=== PATIENT | male | born 1960 | race Caucasian/White ===

== ENCOUNTER 2017-11-21 15:49 | Inpatient (IN) | payer OTHER ==
[2017-11-21] MEDS: morphine 4 MG/ML VIAL IV (20:25)
[2017-11-21] MEDS: SOD CHLORIDE 0.9% 1,000 ML IV (20:25)
[2017-11-21] MEDS: ACETAMINOPHEN 325 MG TAB PO (20:26)
[2017-11-21] MEDS: ONDANSETRON 4 MG INJ IV (20:26)
[2017-11-21 20:44] LABS: ADD MAN DIFF? NO
[2017-11-21 20:49] LABS: ABNORMAL IP MESSAGE 1; BASOPHILS % 0.2 % (0.0-2.0); EOSINOPHILS % 0.1 % (0.0-7.0); HEMATOCRIT 35.9 % (42.0-52.0); HEMOGLOBIN 12.3 g/dl (14.0-18.0); LYMPHOCYTES # 0.9 10^3/ul (0.8-2.9); LYMPHOCYTES % 5.9 % (15.0-51.0); MEAN CORPUSCULAR HGB CONC 34.3 g/dl (32.0-37.0); MEAN CORPUSCULAR VOLUME 87.6 fl (82.0-101.0); MEAN PLATELET VOLUME 11.7 fl (7.4-10.4); MONOCYTE # 0.9 10^3/ul (0.3-0.9); MONOCYTES % 5.6 % (0.0-11.0); NEUTROPHIL # 13.9 10^3/ul (1.6-7.5); NEUTROPHILS % 87.6 % (39.0-77.0); PLATELET COUNT 536 10^3/UL (140-415); POSITIVE DIFF @See below; RED CELL DISTRIBUTION WIDTH 12.8 % (11.5-14.5)
[2017-11-21 20:49] LABS: WHITE BLOOD COUNT 15.8 10^3/ul (4.8-10.8)
[2017-11-21 20:58] LABS: ADD UMIC YES; UR ASCORBIC ACID NEGATIVE (NEGATIVE); UR BACTERIA MANY /HPF (NONE SEEN); UR BILIRUBIN (Dip) NEGATIVE (NEGATIVE); UR BLOOD (Dip) 2+ mg/dL (NEGATIVE); UR CLARITY CLOUDY (CLEAR); UR COLOR YELLOW (YELLOW); UR GLUCOSE (Dip) 1+ mg/dL (NEGATIVE); UR KETONES (Dip) NEGATIVE (NEGATIVE); UR LEUKOCYTE ESTERASE (Dip) 3+ Leu/ul (NEGATIVE); UR NITRITE (Dip) NEGATIVE (NEGATIVE); UR RBC 2 /HPF (0-5); UR SPECIFIC GRAVITY (Dip) 1.009 (1.003-1.030); UR TOTAL PROTEIN (Dip) 2+ mg/dl (NEGATIVE); UR UROBILINOGEN (Dip) NEGATIVE (NEGATIVE); UR WBC > 182 /HPF (0-5)
[2017-11-21 21:07] LABS: ALANINE AMINOTRANSFERASE 59 IU/L (13-69); ALBUMIN 3.2 g/dl (3.3-4.9); ALBUMIN/GLOBULIN RATIO 0.84; ALKALINE PHOSPHATASE 153 IU/L (42-121); ANION GAP 18 (8-16); ASPARTATE AMINO TRANSFERASE 39 IU/L (15-46); BILIRUBIN,INDIRECT 0.5 mg/dl (0-1.1); BILIRUBIN,TOTAL 0.5 mg/dl (0.2-1.3); BLOOD UREA NITROGEN 81 mg/dl (7-20); CALCIUM 7.8 mg/dl (8.4-10.2); CARBON DIOXIDE 21 mmol/L (21-31); CHLORIDE 87 mmol/L (97-110); CREATININE 4.54 mg/dl (0.61-1.24); GLUCOSE 348 mg/dl (70-220); POTASSIUM 5.1 mmol/L (3.5-5.1); SODIUM 121 mmol/L (135-144)
[2017-11-21 21:34] LABS: PROTIME 14.4 Sec (11.9-14.9); PT RATIO 1.1
[2017-11-21 21:35] LABS: PARTIAL THROMBOPLASTIN TIME 38.4 Sec (25.0-35.0)
[2017-11-22 01:13] LABS: LACTIC ACID 1.2 mmol/L (0.5-2.0)
[2017-11-22 01:25] LABS: TROPONIN-I < 0.012 ng/ml (0.00-0.12)
[2017-11-22] MEDS: SOD CHLORIDE 0.9% 1,000 ML IV ×5 (02:15→23:32)
[2017-11-22] MEDS: CEFTRIAXONE 1 GM/50 ML (PMX) 50 ML IVPB (02:17)
[2017-11-22] MEDS ORDERED: ACETAMINOPHEN 325 MG TAB PO (02:30)
[2017-11-22 02:34] LABS: LACTIC ACID 1.3 mmol/L (0.5-2.0)
[2017-11-22] MEDS: INSULIN GLARGINE [LANtus] 3 ML PEN SC ×2 (04:00→07:54)
[2017-11-22] MEDS ORDERED: GLUCAGON 1 MG INJ IM (04:00)
[2017-11-22] MEDS ORDERED: NACL 0.9% 3 ML SYG IV (04:00)
[2017-11-22] MEDS ORDERED: GLUCOSE GEL 15 GRAM TUBE PO ×2 (04:00)
[2017-11-22] MEDS ORDERED: DEXTROSE 50% 50 ML SYRINGE IV ×2 (04:00)
[2017-11-22] MEDS ORDERED: GLUCOSE GEL 15 GRAM TUBE BUCCAL (04:00)
[2017-11-22] MEDS ORDERED: ALBUTEROL/IPRATROPIUM (NEB) 3 ML AMP HHN (04:00)
[2017-11-22] MEDS: metroNIDAZOLE 500 MG/NS (PMX) 100 ML IVPB ×3 (04:09→20:11)
[2017-11-22 05:58] LABS: ADD MAN DIFF? NO
[2017-11-22 06:00] LABS: WHITE BLOOD COUNT 13.2 10^3/ul (4.8-10.8)
[2017-11-22 06:00] LABS: ABNORMAL IP MESSAGE 1; BASOPHIL # 0.1 10^3/ul (0.0-0.1); BASOPHILS % 0.4 % (0.0-2.0); EOSINOPHILS % 0.2 % (0.0-7.0); HEMATOCRIT 32.6 % (42.0-52.0); LYMPHOCYTES # 0.4 10^3/ul (0.8-2.9); LYMPHOCYTES % 3.3 % (15.0-51.0); MEAN CORPUSCULAR HEMOGLOBIN 30.5 pg (29.0-33.0); MEAN CORPUSCULAR HGB CONC 33.7 g/dl (32.0-37.0); MEAN CORPUSCULAR VOLUME 90.3 fl (82.0-101.0); MEAN PLATELET VOLUME 11.5 fl (7.4-10.4); MONOCYTE # 0.8 10^3/ul (0.3-0.9); MONOCYTES % 6.1 % (0.0-11.0); NEUTROPHIL # 11.8 10^3/ul (1.6-7.5); NEUTROPHILS % 89.2 % (39.0-77.0); PLATELET COUNT 417 10^3/UL (140-415); POSITIVE DIFF @See below; RED BLOOD COUNT 3.61 10^6/ul (4.70-6.10); RED CELL DISTRIBUTION WIDTH 12.6 % (11.5-14.5)
[2017-11-22 07:05] LABS: PROSTATE SPECIFIC ANTIGEN 3.1 ng/ml (0.0-4.0)
[2017-11-22 07:09] LABS: HEMOGLOBIN A1C 8.4 % (0-5.9)
[2017-11-22 07:10] LABS: LACTIC ACID 1.4 mmol/L (0.5-2.0)
[2017-11-22 07:13] LABS: ALANINE AMINOTRANSFERASE 48 IU/L (13-69); ALBUMIN 2.4 g/dl (3.3-4.9); ALBUMIN/GLOBULIN RATIO 0.68; ALKALINE PHOSPHATASE 100 IU/L (42-121); ANION GAP 15 (8-16); ASPARTATE AMINO TRANSFERASE 33 IU/L (15-46); BILIRUBIN,INDIRECT 0.1 mg/dl (0-1.1); BILIRUBIN,TOTAL 0.1 mg/dl (0.2-1.3); BLOOD UREA NITROGEN 84 mg/dl (7-20); CALCIUM 6.9 mg/dl (8.4-10.2); CARBON DIOXIDE 19 mmol/L (21-31); CHLORIDE 100 mmol/L (97-110); CREATININE 3.76 mg/dl (0.61-1.24); GLUCOSE 175 mg/dl (70-220); HDL CHOLESTEROL 11 mg/dl (28-71); MAGNESIUM 2.3 mg/dl (1.7-2.5); POTASSIUM 4.9 mmol/L (3.5-5.1); SODIUM 129 mmol/L (135-144); TOTAL PROTEIN 5.9 g/dl (6.1-8.1); TRIGLYCERIDES 105 mg/dl (0-149)
[2017-11-22 07:14] LABS: CHOLESTEROL < 50 mg/dl (100-200)
[2017-11-22] MEDS: ONDANSETRON 4 MG INJ IV (07:22)
[2017-11-22] MEDS: morphine 2 MG INJ IV (07:22)
[2017-11-22] MEDS: INSULIN ASPART [NOVOLOG] 3 ML PEN SC ×7 (07:56→20:12)
[2017-11-22] MEDS: CIPROFLOXACIN 400MG/D5W 200 ML IVPB (08:46)
[2017-11-22] MEDS ORDERED: HEPARIN 5,000 UNIT/0.5 ML VIAL SC (09:00)
[2017-11-22] MEDS ORDERED: CEFTRIAXONE 1 GM/50 ML (PMX) 50 ML IVPB (11:00)
[2017-11-22 13:34] LABS: CREATINE KINASE 119 IU/L (23-200)
[2017-11-22] MEDS: ACETAMINOPHEN 325 MG TAB PO (15:11)
[2017-11-22 17:06] LABS: SODIUM,URINE RANDOM 35 mmol/L (30-90)
[2017-11-22 17:08] LABS: CREATININE,URINE RANDOM 24.34 mg/dl (20-370)
[2017-11-22] MEDS: ALPRAZOLAM 0.5 MG TAB PO (22:31)
[2017-11-23] MEDS: ACCU-CHEK XX (01:41)
[2017-11-23] MEDS: SOD CHLORIDE 0.9% 1,000 ML IV ×2 (02:12→19:27)
[2017-11-23] MEDS: metroNIDAZOLE 500 MG/NS (PMX) 100 ML IVPB (03:46)
[2017-11-23 05:55] LABS: ADD MAN DIFF? NO
[2017-11-23 05:57] LABS: BASOPHILS % 0.2 % (0.0-2.0); EOSINOPHILS # 0.1 10^3/ul (0.0-0.5); EOSINOPHILS % 0.5 % (0.0-7.0); HEMATOCRIT 31.2 % (42.0-52.0); HEMOGLOBIN 10.5 g/dl (14.0-18.0); LYMPHOCYTES # 0.8 10^3/ul (0.8-2.9); MEAN CORPUSCULAR HEMOGLOBIN 30.2 pg (29.0-33.0); MEAN CORPUSCULAR HGB CONC 33.7 g/dl (32.0-37.0); MEAN CORPUSCULAR VOLUME 89.7 fl (82.0-101.0); MEAN PLATELET VOLUME 11.4 fl (7.4-10.4); MONOCYTE # 1.1 10^3/ul (0.3-0.9); MONOCYTES % 7.7 % (0.0-11.0); NEUTROPHIL # 11.9 10^3/ul (1.6-7.5); NEUTROPHILS % 84.5 % (39.0-77.0); PLATELET COUNT 445 10^3/UL (140-415); POSITIVE DIFF @See below; RED BLOOD COUNT 3.48 10^6/ul (4.70-6.10); RED CELL DISTRIBUTION WIDTH 12.9 % (11.5-14.5)
[2017-11-23 05:57] LABS: WHITE BLOOD COUNT 14.1 10^3/ul (4.8-10.8)
[2017-11-23] MEDS ORDERED: VANCOMYCIN IV PER PHARMACY XX (06:30)
[2017-11-23] MEDS: PIPER-TAZO 2.25 GM (PMX) 50 ML IVPB (06:30)
[2017-11-23 07:10] LABS: ANION GAP 15 (8-16); BLOOD UREA NITROGEN 64 mg/dl (7-20); CALCIUM 7.3 mg/dl (8.4-10.2); CARBON DIOXIDE 19 mmol/L (21-31); CHLORIDE 106 mmol/L (97-110); CREATININE 2.72 mg/dl (0.61-1.24); GLUCOSE 104 mg/dl (70-220); MAGNESIUM 2.3 mg/dl (1.7-2.5); POTASSIUM 4.7 mmol/L (3.5-5.1); SODIUM 135 mmol/L (135-144)
[2017-11-23] MEDS: VANCOMYCIN 1.75 GM in D5W 500 ML IVPB ×2 (08:00→11:17)
[2017-11-23] MEDS: INSULIN ASPART [NOVOLOG] 3 ML PEN SC ×7 (08:00→21:00)
[2017-11-23] MEDS: INSULIN GLARGINE [LANtus] 3 ML PEN SC (08:17)
[2017-11-23 09:32] LABS: AADO2 Arterial 29.9 mmHg (7.0-24.0); Allen Test ACCEPTAB; Arterial Base Excess -6.4 mmol/L (-3.0-3); Arterial Blood Gas Oxygen Sat 96.5 mmHG (95.0-98.0); Arterial COHb 0.3 % (0.0-3.0); Arterial HCO3 16.3 mmol/L (22.0-26.0); Arterial MetHb 0.2 % (0.0-1.5); Arterial Total Hemglobin 13.9 g/dl (12.0-18.0); Arterial pCO2 25.6 mmhg (35-45); MODE ROOM AIR; Site Right Radial
[2017-11-23] MEDS ORDERED: INFLUENZA VIRUS VACCINE 0.5 ML SYG IM* (10:00)
[2017-11-23] MEDS: morphine 2 MG INJ IV (11:22)
[2017-11-23] MEDS ORDERED: PIPER-TAZO 3.375 GM IV (PMX) 100 ML IVPB (14:00)
[2017-11-23] MEDS: PIPER-TAZO 3.375 GM IV (PMX) 100 ML IVPB ×2 (16:08→22:09)
[2017-11-23] MEDS: HYDROCODONE/APAP (5/325) TAB PO (20:13)
[2017-11-24] MEDS: CHLORPROMAZINE 10 MG TAB PO (01:57)
[2017-11-24] MEDS: ACCU-CHEK XX (02:00)
[2017-11-24] MEDS: PIPER-TAZO 3.375 GM IV (PMX) 100 ML IVPB ×3 (05:33→21:34)
[2017-11-24] MEDS: SOD CHLORIDE 0.9% 1,000 ML IV ×2 (06:36→17:34)
[2017-11-24 08:00] LABS: ADD MAN DIFF? NO
[2017-11-24] MEDS: INSULIN ASPART [NOVOLOG] 3 ML PEN SC ×7 (08:00→21:00)
[2017-11-24 08:10] LABS: BASOPHIL # 0.1 10^3/ul (0.0-0.1); BASOPHILS % 0.4 % (0.0-2.0); EOSINOPHILS # 0.1 10^3/ul (0.0-0.5); EOSINOPHILS % 0.5 % (0.0-7.0); HEMATOCRIT 33.4 % (42.0-52.0); LYMPHOCYTES # 0.9 10^3/ul (0.8-2.9); LYMPHOCYTES % 5.2 % (15.0-51.0); MEAN CORPUSCULAR HEMOGLOBIN 30.2 pg (29.0-33.0); MEAN CORPUSCULAR HGB CONC 32.9 g/dl (32.0-37.0); MEAN CORPUSCULAR VOLUME 91.8 fl (82.0-101.0); MEAN PLATELET VOLUME 11.2 fl (7.4-10.4); MONOCYTES % 5.5 % (0.0-11.0); NEUTROPHIL # 15.6 10^3/ul (1.6-7.5); PLATELET COUNT 528 10^3/UL (140-415); RED BLOOD COUNT 3.64 10^6/ul (4.70-6.10); RED CELL DISTRIBUTION WIDTH 12.9 % (11.5-14.5)
[2017-11-24 08:10] LABS: WHITE BLOOD COUNT 17.9 10^3/ul (4.8-10.8)
[2017-11-24] MEDS: INSULIN GLARGINE [LANtus] 3 ML PEN SC (08:23)
[2017-11-24] MEDS ORDERED: VANCOMYCIN 1.5 GM in DEXTROSE 5% 500 ML IVPB (09:00)
[2017-11-24 09:02] LABS: ANION GAP 12 (8-16); BLOOD UREA NITROGEN 48 mg/dl (7-20); CARBON DIOXIDE 19 mmol/L (21-31); CHLORIDE 108 mmol/L (97-110); CREATININE 1.97 mg/dl (0.61-1.24); GLUCOSE 120 mg/dl (70-220); PHOSPHORUS 4.5 mg/dl (2.5-4.9); POTASSIUM 5.3 mmol/L (3.5-5.1); SODIUM 134 mmol/L (135-144)
[2017-11-24] MEDS: TAMSULOSIN (SR) 0.4 MG CAP PO ×2 (09:33→20:20)
[2017-11-24 09:48] LABS: HEPATITIS C VIRAL ANTIBODY NEGATIVE (NEGATIVE)
[2017-11-24] MEDS: HYDROCODONE/APAP (5/325) TAB PO ×2 (11:17→20:19)
[2017-11-24] MEDS: VANCOMYCIN 1.5 GM in DEXTROSE 5% 500 ML IVPB (11:24)
[2017-11-24 13:36] LABS: COMPLEMENT C3 94 mg/dl (88-165); COMPLEMENT C4 24 mg/dl (14-44)
[2017-11-24 13:59] LABS: HEPATITIS B SURFACE ANTIGEN NEGATIVE (NEGATIVE)
[2017-11-24 14:01] LABS: COLLECTION PERIOD 24 hrs
[2017-11-24 14:02] LABS: COLLECTION PERIOD 24 hrs; CREATININE CLEARANCE 57.2 mls/min (84.0-162.0); CREATININE,URINE RANDOM 20.81 mg/dl (20-370); SCRET 1.97 mg/dl (0.61-1.24); VOLUME 7800 ml/24hrs; VOLUME 7800 mls
[2017-11-24] MEDS: NA POLYST SULFON 15 GM/60 ML BTL PO (15:29)
[2017-11-24] MEDS ORDERED: morphine LIQ (10 MG/5 ML) CUP PO (15:30)
[2017-11-24 19:14] LABS: POTASSIUM 4.7 mmol/L (3.5-5.1)
[2017-11-25] MEDS: ACCU-CHEK XX (02:00)
[2017-11-25] MEDS: SOD CHLORIDE 0.9% 1,000 ML IV ×3 (04:11→21:12)
[2017-11-25] MEDS: PIPER-TAZO 3.375 GM IV (PMX) 100 ML IVPB ×3 (05:18→21:17)
[2017-11-25] MEDS: CHLORPROMAZINE 10 MG TAB PO ×2 (05:25→21:17)
[2017-11-25 06:10] LABS: ADD MAN DIFF? NO
[2017-11-25 06:14] LABS: BASOPHIL # 0.1 10^3/ul (0.0-0.1); BASOPHILS % 0.4 % (0.0-2.0); EOSINOPHILS # 0.1 10^3/ul (0.0-0.5); EOSINOPHILS % 0.7 % (0.0-7.0); HEMATOCRIT 33.5 % (42.0-52.0); HEMOGLOBIN 10.8 g/dl (14.0-18.0); LYMPHOCYTES % 4.8 % (15.0-51.0); MEAN CORPUSCULAR HEMOGLOBIN 29.6 pg (29.0-33.0); MEAN CORPUSCULAR HGB CONC 32.2 g/dl (32.0-37.0); MEAN CORPUSCULAR VOLUME 91.8 fl (82.0-101.0); MEAN PLATELET VOLUME 10.3 fl (7.4-10.4); NEUTROPHIL # 17.2 10^3/ul (1.6-7.5); NEUTROPHILS % 87.5 % (39.0-77.0); PLATELET COUNT 590 10^3/UL (140-415); RED BLOOD COUNT 3.65 10^6/ul (4.70-6.10)
[2017-11-25 06:14] LABS: WHITE BLOOD COUNT 19.7 10^3/ul (4.8-10.8)
[2017-11-25 06:52] LABS: ANION GAP 13 (8-16); BLOOD UREA NITROGEN 33 mg/dl (7-20); CALCIUM 7.8 mg/dl (8.4-10.2); CARBON DIOXIDE 20 mmol/L (21-31); CHLORIDE 112 mmol/L (97-110); GLUCOSE 146 mg/dl (70-220); MAGNESIUM 1.8 mg/dl (1.7-2.5); PHOSPHORUS 3.5 mg/dl (2.5-4.9); POTASSIUM 4.7 mmol/L (3.5-5.1); SODIUM 140 mmol/L (135-144)
[2017-11-25] MEDS: TAMSULOSIN (SR) 0.4 MG CAP PO ×2 (08:25→20:10)
[2017-11-25] MEDS: INSULIN GLARGINE [LANtus] 3 ML PEN SC (08:26)
[2017-11-25] MEDS: INSULIN ASPART [NOVOLOG] 3 ML PEN SC ×7 (08:27→20:11)
[2017-11-25] MEDS: HYDROCODONE/APAP (5/325) TAB PO ×2 (10:58→20:10)
[2017-11-25] MEDS: VANCOMYCIN 1.25 GM in SOD CHLORIDE 0.45% 250 ML IVPB (11:01)
[2017-11-25 12:11] LABS: ANA SCREEN NEGATIVE (NEGATIVE)
[2017-11-25 14:27] LABS: ANCA SCREEN NEGATIVE (NEGATIVE)
[2017-11-25 16:41] LABS: MYELOPEROXIDASE ANTIBODY <1.0 AI; PROTEINASE-3 ANTIBODY <1.0 AI
[2017-11-26] MEDS: ACCU-CHEK XX (01:29)
[2017-11-26] MEDS: SOD CHLORIDE 0.9% 1,000 ML IV ×2 (03:15→17:18)
[2017-11-26] MEDS: HYDROCODONE/APAP (5/325) TAB PO ×2 (03:19→17:14)
[2017-11-26] MEDS: PIPER-TAZO 3.375 GM IV (PMX) 100 ML IVPB ×3 (05:15→21:11)
[2017-11-26] MEDS: CHLORPROMAZINE 10 MG TAB PO (05:19)
[2017-11-26 06:23] LABS: ADD MAN DIFF? NO
[2017-11-26 06:40] LABS: BASOPHIL # 0.1 10^3/ul (0.0-0.1); BASOPHILS % 0.4 % (0.0-2.0); EOSINOPHILS # 0.2 10^3/ul (0.0-0.5); EOSINOPHILS % 1.1 % (0.0-7.0); HEMATOCRIT 33.3 % (42.0-52.0); HEMOGLOBIN 10.6 g/dl (14.0-18.0); LYMPHOCYTES # 1.6 10^3/ul (0.8-2.9); LYMPHOCYTES % 7.9 % (15.0-51.0); MEAN CORPUSCULAR HEMOGLOBIN 29.9 pg (29.0-33.0); MEAN CORPUSCULAR HGB CONC 31.8 g/dl (32.0-37.0); MEAN CORPUSCULAR VOLUME 93.8 fl (82.0-101.0); MEAN PLATELET VOLUME 10.2 fl (7.4-10.4); MONOCYTES % 4.9 % (0.0-11.0); NEUTROPHIL # 16.8 10^3/ul (1.6-7.5); PLATELET COUNT 611 10^3/UL (140-415); RED BLOOD COUNT 3.55 10^6/ul (4.70-6.10); RED CELL DISTRIBUTION WIDTH 13.1 % (11.5-14.5)
[2017-11-26 07:06] LABS: ANION GAP 11 (8-16); BLOOD UREA NITROGEN 21 mg/dl (7-20); CALCIUM 8.3 mg/dl (8.4-10.2); CARBON DIOXIDE 22 mmol/L (21-31); CHLORIDE 112 mmol/L (97-110); CREATININE 1.48 mg/dl (0.61-1.24); GLUCOSE 134 mg/dl (70-220); MAGNESIUM 1.6 mg/dl (1.7-2.5); PHOSPHORUS 3.2 mg/dl (2.5-4.9); POTASSIUM 4.3 mmol/L (3.5-5.1); SODIUM 141 mmol/L (135-144)
[2017-11-26] MEDS: INSULIN ASPART [NOVOLOG] 3 ML PEN SC ×7 (08:00→21:00)
[2017-11-26] MEDS: TAMSULOSIN (SR) 0.4 MG CAP PO ×2 (08:05→21:08)
[2017-11-26] MEDS: INSULIN GLARGINE [LANtus] 3 ML PEN SC (08:06)
[2017-11-26] MEDS: INFLUENZA VIRUS VACCINE 0.5 ML SYG IM* (12:37)
[2017-11-26 14:07] LABS: COMPLEMENT, TOTAL (CH50) 57 U/mL (31-60)
[2017-11-26] MEDS: PANTOPRAZOLE (EC) 40 MG TAB PO (17:17)
[2017-11-26] MEDS: CHLORPROMAZINE 25 MG TAB PO (17:17)
[2017-11-27] MEDS: ACCU-CHEK XX (01:10)
[2017-11-27] MEDS: SOD CHLORIDE 0.9% 1,000 ML IV ×3 (03:35→17:32)
[2017-11-27] MEDS: PANTOPRAZOLE (EC) 40 MG TAB PO (05:34)
[2017-11-27] MEDS: PIPER-TAZO 3.375 GM IV (PMX) 100 ML IVPB ×3 (05:34→22:04)
[2017-11-27] MEDS: TAMSULOSIN (SR) 0.4 MG CAP PO ×2 (08:14→20:36)
[2017-11-27] MEDS: INSULIN ASPART [NOVOLOG] 3 ML PEN SC ×7 (08:17→20:40)
[2017-11-27] MEDS: INSULIN GLARGINE [LANtus] 3 ML PEN SC (08:19)
[2017-11-27] MEDS: HYDROCODONE/APAP (5/325) TAB PO ×2 (12:15→20:36)
[2017-11-27 13:26] LABS: ADD MAN DIFF? NO
[2017-11-27 13:27] LABS: BASOPHIL # 0.1 10^3/ul (0.0-0.1); BASOPHILS % 0.4 % (0.0-2.0); EOSINOPHILS # 0.2 10^3/ul (0.0-0.5); EOSINOPHILS % 0.9 % (0.0-7.0); HEMOGLOBIN 9.8 g/dl (14.0-18.0); LYMPHOCYTES # 1.1 10^3/ul (0.8-2.9); LYMPHOCYTES % 6.2 % (15.0-51.0); MEAN CORPUSCULAR HEMOGLOBIN 30.1 pg (29.0-33.0); MEAN CORPUSCULAR HGB CONC 32.7 g/dl (32.0-37.0); MEAN PLATELET VOLUME 9.3 fl (7.4-10.4); MONOCYTE # 0.7 10^3/ul (0.3-0.9); MONOCYTES % 4.1 % (0.0-11.0); NEUTROPHIL # 15.9 10^3/ul (1.6-7.5); NEUTROPHILS % 87.1 % (39.0-77.0); PLATELET COUNT 536 10^3/UL (140-415); RED BLOOD COUNT 3.26 10^6/ul (4.70-6.10); RED CELL DISTRIBUTION WIDTH 12.9 % (11.5-14.5)
[2017-11-27 13:27] LABS: WHITE BLOOD COUNT 18.3 10^3/ul (4.8-10.8)
[2017-11-27 13:47] LABS: ANION GAP 11 (8-16); BLOOD UREA NITROGEN 17 mg/dl (7-20); CALCIUM 8.1 mg/dl (8.4-10.2); CARBON DIOXIDE 20 mmol/L (21-31); CHLORIDE 113 mmol/L (97-110); CREATININE 1.31 mg/dl (0.61-1.24); GLUCOSE 197 mg/dl (70-220); POTASSIUM 4.1 mmol/L (3.5-5.1); SODIUM 140 mmol/L (135-144)
[2017-11-27] MEDS: CHLORPROMAZINE 25 MG TAB PO (14:34)
[2017-11-27 15:54] LABS: ADD UMIC YES; UR ASCORBIC ACID NEGATIVE (NEGATIVE); UR BACTERIA FEW /HPF (NONE SEEN); UR BILIRUBIN (Dip) NEGATIVE (NEGATIVE); UR BLOOD (Dip) 2+ mg/dL (NEGATIVE); UR CLARITY CLEAR (CLEAR); UR COLOR STRAW (YELLOW); UR GLUCOSE (Dip) 1+ mg/dL (NEGATIVE); UR KETONES (Dip) NEGATIVE (NEGATIVE); UR LEUKOCYTE ESTERASE (Dip) TRACE Leu/ul (NEGATIVE); UR NITRITE (Dip) NEGATIVE (NEGATIVE); UR RBC 4 /HPF (0-5); UR SPECIFIC GRAVITY (Dip) 1.005 (1.003-1.030); UR TOTAL PROTEIN (Dip) NEGATIVE (NEGATIVE); UR UROBILINOGEN (Dip) NEGATIVE (NEGATIVE); UR WBC 18 /HPF (0-5)
[2017-11-28] MEDS: ACCU-CHEK XX (02:00)
[2017-11-28] MEDS: HYDROCODONE/APAP (5/325) TAB PO ×2 (02:47→11:48)
[2017-11-28] MEDS: PIPER-TAZO 3.375 GM IV (PMX) 100 ML IVPB (05:42)
[2017-11-28] MEDS: SOD CHLORIDE 0.9% 1,000 ML IV (05:42)
[2017-11-28] MEDS: PANTOPRAZOLE (EC) 40 MG TAB PO (05:42)
[2017-11-28 05:44] LABS: ADD MAN DIFF? NO
[2017-11-28 05:48] LABS: BASOPHIL # 0.1 10^3/ul (0.0-0.1); BASOPHILS % 0.5 % (0.0-2.0); EOSINOPHILS # 0.2 10^3/ul (0.0-0.5); HEMATOCRIT 30.5 % (42.0-52.0); HEMOGLOBIN 9.8 g/dl (14.0-18.0); LYMPHOCYTES # 1.6 10^3/ul (0.8-2.9); LYMPHOCYTES % 9.2 % (15.0-51.0); MEAN CORPUSCULAR HEMOGLOBIN 29.6 pg (29.0-33.0); MEAN CORPUSCULAR HGB CONC 32.1 g/dl (32.0-37.0); MEAN CORPUSCULAR VOLUME 92.1 fl (82.0-101.0); MEAN PLATELET VOLUME 9.5 fl (7.4-10.4); MONOCYTE # 0.8 10^3/ul (0.3-0.9); MONOCYTES % 4.4 % (0.0-11.0); NEUTROPHIL # 14.5 10^3/ul (1.6-7.5); NEUTROPHILS % 83.6 % (39.0-77.0); PLATELET COUNT 589 10^3/UL (140-415); RED BLOOD COUNT 3.31 10^6/ul (4.70-6.10); RED CELL DISTRIBUTION WIDTH 13.1 % (11.5-14.5)
[2017-11-28 05:48] LABS: WHITE BLOOD COUNT 17.3 10^3/ul (4.8-10.8)
[2017-11-28 06:12] LABS: ANION GAP 12 (8-16); BLOOD UREA NITROGEN 17 mg/dl (7-20); CALCIUM 8.3 mg/dl (8.4-10.2); CARBON DIOXIDE 22 mmol/L (21-31); CHLORIDE 113 mmol/L (97-110); GLUCOSE 116 mg/dl (70-220); POTASSIUM 4.2 mmol/L (3.5-5.1); SODIUM 143 mmol/L (135-144)
[2017-11-28] MEDS: INSULIN ASPART [NOVOLOG] 3 ML PEN SC ×7 (08:00→21:09)
[2017-11-28] MEDS: TAMSULOSIN (SR) 0.4 MG CAP PO ×2 (08:23→21:01)
[2017-11-28] MEDS: INSULIN GLARGINE [LANtus] 3 ML PEN SC (08:24)
[2017-11-28] MEDS: LIDOCAINE 1% (MPF) 5 ML VIAL SC (12:29)
[2017-11-28] MEDS: CEFAZOLIN 2 GM/50 ML (PMX) 50 ML IVPB ×2 (13:37→21:32)
[2017-11-29] MEDS: ACCU-CHEK XX (02:00)
[2017-11-29] MEDS: CEFAZOLIN 2 GM/50 ML (PMX) 50 ML IVPB ×3 (05:42→22:30)
[2017-11-29 06:45] LABS: ADD MAN DIFF? NO
[2017-11-29 06:52] LABS: WHITE BLOOD COUNT 16.9 10^3/ul (4.8-10.8)
[2017-11-29 06:52] LABS: BASOPHIL # 0.1 10^3/ul (0.0-0.1); BASOPHILS % 0.5 % (0.0-2.0); EOSINOPHILS # 0.1 10^3/ul (0.0-0.5); EOSINOPHILS % 0.8 % (0.0-7.0); HEMOGLOBIN 10.6 g/dl (14.0-18.0); LYMPHOCYTES # 1.7 10^3/ul (0.8-2.9); LYMPHOCYTES % 10.2 % (15.0-51.0); MEAN CORPUSCULAR HEMOGLOBIN 29.5 pg (29.0-33.0); MEAN CORPUSCULAR HGB CONC 32.1 g/dl (32.0-37.0); MEAN CORPUSCULAR VOLUME 91.9 fl (82.0-101.0); MEAN PLATELET VOLUME 9.3 fl (7.4-10.4); MONOCYTE # 0.7 10^3/ul (0.3-0.9); MONOCYTES % 4.1 % (0.0-11.0); NEUTROPHIL # 14.2 10^3/ul (1.6-7.5); NEUTROPHILS % 83.5 % (39.0-77.0); PLATELET COUNT 649 10^3/UL (140-415); RED BLOOD COUNT 3.59 10^6/ul (4.70-6.10); RED CELL DISTRIBUTION WIDTH 12.5 % (11.5-14.5)
[2017-11-29 07:07] LABS: MAGNESIUM 1.6 mg/dl (1.7-2.5)
[2017-11-29 07:07] LABS: PHOSPHORUS 3.8 mg/dl (2.5-4.9)
[2017-11-29 07:15] LABS: ANION GAP 13 (8-16); BLOOD UREA NITROGEN 17 mg/dl (7-20); CALCIUM 8.8 mg/dl (8.4-10.2); CARBON DIOXIDE 24 mmol/L (21-31); CHLORIDE 108 mmol/L (97-110); CREATININE 1.24 mg/dl (0.61-1.24); GLUCOSE 147 mg/dl (70-220); POTASSIUM 3.9 mmol/L (3.5-5.1); SODIUM 141 mmol/L (135-144)
[2017-11-29] MEDS: INSULIN ASPART [NOVOLOG] 3 ML PEN SC ×7 (08:00→20:33)
[2017-11-29] MEDS: TAMSULOSIN (SR) 0.4 MG CAP PO ×2 (08:24→20:32)
[2017-11-29] MEDS: INSULIN GLARGINE [LANtus] 3 ML PEN SC (08:27)
[2017-11-29] MEDS: MAGNESIUM SULFATE 3 GM in DEXTROSE 5% 100 ML IVPB (10:27)
[2017-11-29] MEDS: HYDROCODONE/APAP (5/325) TAB PO (14:29)
[2017-11-30] MEDS: ACCU-CHEK XX (02:00)
[2017-11-30] MEDS: CEFAZOLIN 2 GM/50 ML (PMX) 50 ML IVPB ×3 (06:18→21:09)
[2017-11-30 06:26] LABS: ADD MAN DIFF? NO
[2017-11-30 06:35] LABS: BASOPHIL # 0.1 10^3/ul (0.0-0.1); BASOPHILS % 0.4 % (0.0-2.0); EOSINOPHILS # 0.2 10^3/ul (0.0-0.5); EOSINOPHILS % 0.9 % (0.0-7.0); HEMATOCRIT 32.9 % (42.0-52.0); HEMOGLOBIN 10.6 g/dl (14.0-18.0); LYMPHOCYTES # 1.7 10^3/ul (0.8-2.9); LYMPHOCYTES % 10.7 % (15.0-51.0); MEAN CORPUSCULAR HEMOGLOBIN 29.4 pg (29.0-33.0); MEAN CORPUSCULAR HGB CONC 32.2 g/dl (32.0-37.0); MEAN CORPUSCULAR VOLUME 91.1 fl (82.0-101.0); MEAN PLATELET VOLUME 9.4 fl (7.4-10.4); MONOCYTE # 0.6 10^3/ul (0.3-0.9); MONOCYTES % 3.8 % (0.0-11.0); NEUTROPHIL # 13.3 10^3/ul (1.6-7.5); NEUTROPHILS % 83.4 % (39.0-77.0); PLATELET COUNT 648 10^3/UL (140-415); RED BLOOD COUNT 3.61 10^6/ul (4.70-6.10); RED CELL DISTRIBUTION WIDTH 12.7 % (11.5-14.5)
[2017-11-30 06:35] LABS: WHITE BLOOD COUNT 15.9 10^3/ul (4.8-10.8)
[2017-11-30 07:01] LABS: ANION GAP 12 (8-16); BLOOD UREA NITROGEN 19 mg/dl (7-20); CALCIUM 8.8 mg/dl (8.4-10.2); CARBON DIOXIDE 23 mmol/L (21-31); CHLORIDE 109 mmol/L (97-110); CREATININE 1.19 mg/dl (0.61-1.24); GLUCOSE 143 mg/dl (70-220); POTASSIUM 4.1 mmol/L (3.5-5.1); SODIUM 140 mmol/L (135-144)
[2017-11-30 07:04] LABS: PHOSPHORUS 4.1 mg/dl (2.5-4.9)
[2017-11-30 07:04] LABS: MAGNESIUM 1.9 mg/dl (1.7-2.5)
[2017-11-30] MEDS: INSULIN ASPART [NOVOLOG] 3 ML PEN SC ×7 (08:00→20:21)
[2017-11-30] MEDS: INSULIN GLARGINE [LANtus] 3 ML PEN SC (08:08)
[2017-11-30] MEDS: TAMSULOSIN (SR) 0.4 MG CAP PO ×2 (08:56→20:21)
[2017-12-01] MEDS: ACCU-CHEK XX (01:31)
[2017-12-01] MEDS: CEFAZOLIN 2 GM/50 ML (PMX) 50 ML IVPB ×3 (05:29→20:30)
[2017-12-01 06:34] LABS: ADD MAN DIFF? NO
[2017-12-01 06:43] LABS: BASOPHIL # 0.1 10^3/ul (0.0-0.1); BASOPHILS % 0.7 % (0.0-2.0); EOSINOPHILS # 0.2 10^3/ul (0.0-0.5); EOSINOPHILS % 1.1 % (0.0-7.0); HEMATOCRIT 34.2 % (42.0-52.0); HEMOGLOBIN 11.3 g/dl (14.0-18.0); LYMPHOCYTES # 1.7 10^3/ul (0.8-2.9); LYMPHOCYTES % 11.2 % (15.0-51.0); MEAN CORPUSCULAR HEMOGLOBIN 29.7 pg (29.0-33.0); MEAN PLATELET VOLUME 9.2 fl (7.4-10.4); MONOCYTE # 0.7 10^3/ul (0.3-0.9); MONOCYTES % 4.3 % (0.0-11.0); NEUTROPHIL # 12.3 10^3/ul (1.6-7.5); NEUTROPHILS % 81.8 % (39.0-77.0); RED CELL DISTRIBUTION WIDTH 12.5 % (11.5-14.5)
[2017-12-01 06:55] LABS: PLATELET COUNT 687 10^3/UL (140-415)
[2017-12-01 07:12] LABS: MAGNESIUM 1.8 mg/dl (1.7-2.5)
[2017-12-01 07:15] LABS: ANION GAP 12 (8-16); BLOOD UREA NITROGEN 22 mg/dl (7-20); CALCIUM 9.3 mg/dl (8.4-10.2); CARBON DIOXIDE 24 mmol/L (21-31); CHLORIDE 108 mmol/L (97-110); CREATININE 1.07 mg/dl (0.61-1.24); GLUCOSE 155 mg/dl (70-220); POTASSIUM 4.3 mmol/L (3.5-5.1); SODIUM 140 mmol/L (135-144)
[2017-12-01] MEDS: INSULIN ASPART [NOVOLOG] 3 ML PEN SC ×7 (08:00→20:29)
[2017-12-01] MEDS: INSULIN GLARGINE [LANtus] 3 ML PEN SC (08:30)
[2017-12-01] MEDS: TAMSULOSIN (SR) 0.4 MG CAP PO ×2 (08:31→20:30)
[2017-12-01] MEDS: LIDOCAINE 1% (MPF) 5 ML VIAL SC (15:25)
[2017-12-01] MEDS: SOD CHLORIDE 0.9% 100 ML (15:40)
[2017-12-01] MEDS: HYDROCODONE/APAP (5/325) TAB PO (23:40)
[2017-12-02] MEDS: ACCU-CHEK XX (00:40)
[2017-12-02 05:46] LABS: ADD MAN DIFF? NO
[2017-12-02] MEDS: CEFAZOLIN 2 GM/50 ML (PMX) 50 ML IVPB ×3 (05:51→20:16)
[2017-12-02 05:54] LABS: HEMATOCRIT 33.5 % (42.0-52.0); MEAN CORPUSCULAR HGB CONC 32.8 g/dl (32.0-37.0); MEAN CORPUSCULAR VOLUME 91.3 fl (82.0-101.0); PLATELET COUNT 668 10^3/UL (140-415); RED BLOOD COUNT 3.67 10^6/ul (4.70-6.10); RED CELL DISTRIBUTION WIDTH 12.7 % (11.5-14.5)
[2017-12-02 05:54] LABS: WHITE BLOOD COUNT 16.7 10^3/ul (4.8-10.8)
[2017-12-02 05:55] LABS: BASOPHIL # 0.1 10^3/ul (0.0-0.1); BASOPHILS % 0.7 % (0.0-2.0); EOSINOPHILS # 0.2 10^3/ul (0.0-0.5); LYMPHOCYTES # 1.9 10^3/ul (0.8-2.9); LYMPHOCYTES % 11.6 % (15.0-51.0); MEAN PLATELET VOLUME 9.4 fl (7.4-10.4); MONOCYTE # 0.9 10^3/ul (0.3-0.9); MONOCYTES % 5.2 % (0.0-11.0); NEUTROPHIL # 13.5 10^3/ul (1.6-7.5)
[2017-12-02 06:24] LABS: MAGNESIUM 1.9 mg/dl (1.7-2.5)
[2017-12-02 06:24] LABS: PHOSPHORUS 4.4 mg/dl (2.5-4.9)
[2017-12-02 06:29] LABS: ANION GAP 10 (8-16); BLOOD UREA NITROGEN 24 mg/dl (7-20); CALCIUM 9.1 mg/dl (8.4-10.2); CARBON DIOXIDE 24 mmol/L (21-31); CHLORIDE 109 mmol/L (97-110); CREATININE 1.06 mg/dl (0.61-1.24); GLUCOSE 134 mg/dl (70-220); POTASSIUM 4.3 mmol/L (3.5-5.1); SODIUM 139 mmol/L (135-144)
[2017-12-02] MEDS: INSULIN ASPART [NOVOLOG] 3 ML PEN SC ×7 (07:56→21:00)
[2017-12-02] MEDS: INSULIN GLARGINE [LANtus] 3 ML PEN SC (07:58)
[2017-12-02] MEDS: TAMSULOSIN (SR) 0.4 MG CAP PO ×2 (08:28→20:17)
[2017-12-02] MEDS: LACTOBACILLUS RHAMNOSUS CAP PO (20:17)
[2017-12-02] MEDS: SENNA/DOCUSATE NA (8.6MG/50MG) TAB PO (20:17)
[2017-12-03] MEDS ORDERED: INSULIN GLARGINE [LANtus] 3 ML PEN SC (08:00)
== END 2017-12-02 20:58 | disposition home or self-care (01) | DRG 871 ==
LOC: FTE 15:49 → PP2 11-22 02:19
PROC: 05H633Z Insertion of Infusion Device into Left Subclavian Vein, Percutaneous Approach (ICD-10-PCS; principal; 2017-12-01)
DX: A41.50 Gram-negative sepsis, unspecified (principal); N17.0 Acute kidney failure with tubular necrosis; L89.153 Pressure ulcer of sacral region, stage 3; N39.0 Urinary tract infection, site not specified; E87.1 Hypo-osmolality and hyponatremia; N13.30 Unspecified hydronephrosis; R65.20 Severe sepsis without septic shock; B96.20 Unspecified Escherichia coli [E. coli] as the cause of diseases classified elsewhere; K52.9 Noninfective gastroenteritis and colitis, unspecified; R73.9 Hyperglycemia, unspecified; D64.9 Anemia, unspecified; M89.9 Disorder of bone, unspecified; N40.0 Benign prostatic hyperplasia without lower urinary tract symptoms
CPT/HCPCS: 36415; 36569; 36600; 71045; 74176; 76775; 76937; 78306; 80048; 80053; 80061; 81001; 81003; 82550; 82570; 82575; 82803; 82962; 83036; 83605; 83690; 83735; 84100; 84132; 84153; 84154; 84156; 84300; 84484; 85025; 85610; 85730; 86021; 86038; 86160; 86162; 86320; 86325; 86803; 87040; 87045; 87075; 87086; 87340; 90686; 93005; 96365; 96366; 96372; 96375; 96376; 99291-25; A9503